=== PATIENT | female | born 1975 | race Two or more races ===

== ENCOUNTER 2023-09-26 16:15 | Emergency (ER) | payer OTHER ==
[~2023-09-26] VITALS: Ht 167.6 cm; Wt 74.8 kg
[2023-09-26] MEDS ORDERED: CETIRIZINE HCL10 MG (16:33)
[2023-09-26] MEDS ORDERED: MONTELUKAST SOD10 MG (16:33)
[2023-09-26] MEDS ORDERED: LEVALBUTEROL TA15 GM (16:33)
[2023-09-26] MEDS ORDERED: CEFTRIAXONE SODIUM 1,000 MG VIAL IM STA (17:09)
[2023-09-26] MEDS ORDERED: ACETAMINOPHEN 325 MG TABLET PO STA (17:11)
[2023-09-26] MEDS ORDERED: TRAMADOL HCL 50 MG TABLET PO STA (17:14)
[2023-09-26 17:55] LABS: PH,URINE 7.5 (5.0-8.0); URINE APPEARANCE Cloudy; URINE BILIRRUBIN Negative (NEGATIVE); URINE BLOOD Small; URINE COLOR Dark Yellow; URINE GLUCOSE Negative (NEGATIVE); URINE LEUKOCYTE Large; URINE NITRATE Positive; URINE PROTEIN 30 (NEGATIVE)
[2023-09-26 17:59] LABS: URINE BACTERIA 1862.2 uL (0.0-1933); URINE EPITHELIAL CELLS 1.5 uL (0.0-38.8); URINE RBC 29.7 uL (0.0-20.8); URINE WBC 2339.4 uL (0.0-23.2)
[2023-09-26 18:05] LABS: HEMATOCRIT 40.2 % (36.0-45.00); HEMOGLOBIN 13.5 g/dL (12.0-15.00); MEAN CELL VOLUME 89.9 fL (80.00-100.00); MEAN CORPUSCULAR HEMOGLOBIN 30.1 pg (27.00-32.0); MEAN CORPUSCULAR HGB CONC 33.5 g/dl (32.0-36.0); PLATELET COUNT 331 K/uL (150-450); RED BLOOD COUNT 4.47 M/uL (4.00-6.00); RED CELL DISTRIBUTION WIDTH 14.4 % (11.5-14.5)
[2023-09-26 18:38] LABS: CALCIUM 9.9 mg/dL (8.5-10.1); CREATININE SERUM 0.69 mg/dL (0.55-1.02); GFR 91.19; POTASSIUM 3.77 mEq/L (3.5-5.1)
== END 2023-09-26 19:40 | disposition home or self-care (01) ==
LOC: ER 16:15
PROVIDERS: General Practice
DX: N39.0 Urinary tract infection, site not specified (principal); Z88.6 Allergy status to analgesic agent